=== PATIENT | female | born 1965 | race Caucasian/White ===

== ENCOUNTER → 2017-08-08 | Outpatient (CLI) | payer OTHER ==
[2017-08-08 09:29] LABS: AUTOMATED NEUTROPHIL # 3.5 TH/MM3 (1.8-7.7); BASOPHIL % 0.6 % (0.0-2.0); EOSINOPHIL # 0.2 TH/MM3 (0-0.4); EOSINOPHIL % 3.2 % (0.0-4.0); HEMATOCRIT 33.4 % (35.0-46.0); HEMO FLAGS DIFF FINAL; LYMPH % 22.5 % (9.0-44.0); LYMPHOCYTE # 1.2 TH/MM3 (1.0-4.8); MEAN CELL VOLUME 90.1 FL (80.0-100.0); MEAN CORPUSCULAR HEMOGLOBIN 31.1 PG (27.0-34.0); MEAN CORPUSCULAR HGB CONC 34.5 % (32.0-36.0); MONO % 10.2 % (0.0-8.0); NEUT % 63.5 % (16.0-70.0); PLATELET COUNT 225 TH/MM3 (150-450); RED BLOOD COUNT 3.71 MIL/MM3 (4.00-5.30); RED CELL DISTRIBUTION WIDTH 13.6 % (11.6-17.2); WHITE BLOOD COUNT 5.5 TH/MM3 (4.0-11.0)
[2017-08-08 09:52] LABS: ANION GAP 6 MEQ/L (5-15); AST (GOT) 16 U/L (15-37); BICARBONATE 26.4 MEQ/L (21.0-32.0); BLOOD UREA NITROGEN 12 MG/DL (7-18); CHLORIDE 106 MEQ/L (98-107); GLOMERULAR FILTRATION RATE 92 ML/MIN (>89); GLUCOSE,FASTING 95 MG/DL (74-99); POTASSIUM 4.4 MEQ/L (3.5-5.1); SODIUM (NA) 138 MEQ/L (136-145)
[2017-08-08 09:53] LABS: ALT (GPT) 17 U/L (10-53)
[2017-08-08 10:03] LABS: ALKALINE PHOSPHATASE 52 U/L (45-117); TOTAL BILIRUBIN ADULT 1.8 MG/DL (0.2-1.0)
== END ==
LOC: PLAB 06:40
PROVIDERS: ATTEND Family Medicine
DX: Z00.00 Encounter for general adult medical examination without abnormal findings (principal)
CPT/HCPCS: 36415; 80053; 82306; 84443; 85025

== ENCOUNTER 2018-03-11 16:10 | Observation (INO) ==
--- NOTE | 2018-03-11 17:19 | XR ---
EXAM DATE: 03/11/2018 5:16 PM EDT AGE/SEX: 52 years / Female INDICATIONS: Chest pain. CLINICAL DATA: This is the patient's initial encounter. Patient reports that signs and symptoms have been present for 1 day and indicates a pain score of 8/10. MEDICAL/SURGICAL HISTORY: None. None. COMPARISON: No prior exams available for comparison. FINDINGS: A single AP view of the chest demonstrates the lungs to be symmetrically aerated without evidence of mass, infiltrate or effusion. The cardiomediastinal contours are unremarkable. Osseous structures a re intact. CONCLUSION: No acute cardiopulmonary process. Electronically signed by: Felix Matthews MD 03/11/2018 5:18 PM EDT
[2018-03-11 17:46] LABS: Baso % (Auto) 0.4 % (0.0-2.0); Eos # (Auto) 0.2 th/mm3 (0.0-0.4); Eos % (Auto) 2.4 % (0.0-4.0); Hematocrit 36.5 % (35.0-46.0); Hemoglobin 12.7 gm/dL (11.6-15.3); Lymph # (Auto) 1.6 th/mm3 (1.0-4.8); Lymph % (Auto) 20.6 % (9.0-44.0); Mean Corpuscular HGB Conc 34.9 % (32.0-36.0); Mean Corpuscular Hemoglobin 31.6 pg (27.0-34.0); Mean Corpuscular Volume 90.4 fL (80.0-100.0); Mean Platelet Volume 7.9 fL (7.0-11.0); Mono # (Auto) 0.6 th/mm3 (0.0-0.9); Mono % (Auto) 7.3 % (0.0-8.0); Neut # (Auto) 5.5 th/mm3 (1.8-7.7); Neut % (Auto) 69.3 % (16.0-70.0); Platelet Count 268 th/mm3 (150-450); Red Blood Count 4.04 mil/mm3 (4.00-5.30); Red Cell Distribution Width 13.4 % (11.6-17.2)
[2018-03-11 17:56] LABS: Activated Partial Thrombo Time 32.6 sec (24.3-30.1); INR 1.1 Ratio; Prothrombin Time 10.8 sec (9.8-11.6)
--- NOTE | 2018-03-11 18:52 | ED ---
HPI General Chief Complaint: Chest Pain Stated Complaint: chest pain Time Seen by Provider: 03/11/18 16:36 Source: patient Mode of arrival: ambulatory Limitations: no limitations History of Present Illness HPI narrative: 52-year-old female that presents to the ED for evaluation of chest pressure and nausea for the past less than 2 hours. 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 Per patient is not really painful feels like a pressure. Does not really get worse with deep breaths. Has not noticed anything that makes it better or worse. She took 2 baby aspirins but states that she was followed by Dr. Kidd secondary to some palpitations 5 years ago. They found no signs of acute disease. She apparently was recently diagnosed with high blood pressure and was started on HCTZ she apparently has been taking this for last week and she developed some symptoms that she attributed to possible allergic reaction. Her doctor stop this medication and start her amlodipine. She still been feeling somewhat "weird" secondary to what she attributes this to medication. So she has not started amlodipine. She does take fish oil. She denies any other medical issues. No urinary or bowel movement issues. States that she felt nauseous but did not vomit. No numbness, tingling, weakness. No radiation of the pain Complete Quality Measures for STEMI Alert Patients Related Data Home Medications Medication Instructions Recorded Confirmed amlodipine 5 mg PO DAILY 03/11/18 03/11/18 magnesium 450 mg PO DAILY 03/11/18 03/11/18 omega 2-cff-giq-fish oil [Fish Oil] 1,200 mg PO DAILY 03/11/18 03/11/18 Allergies Allergy/AdvReac Type Severity Reaction Status Date / Time hydrochlorothiazide AdvReac Fatigue Verified 03/11/18 18:45 Review of Systems ROS Unobtainable All other systems reviewed negative except as stated in HPI [facility] Medical History Medical History Hypertension (Acute) Surgical History Surgical History Hx of section (Acute) Social History Social History Substance History: No History of Abuse Second Hand Smoke Exposure: No Smoking Status: Never smoker How Often Do You Have a Drink Containing Alcohol: 2 to 4 times a month Recent Travel in [facility] within the Last 8 Weeks: No Recent Out of Country Travel within the Last 8 Weeks: No Immunization History Tetanus Immunization: <5 Years Hx Influenza Vaccine This Season: Yes Exam Narrative Exam Narrative: GENERAL: Well appearing SKIN: Focused skin assessment warm/dry. HEAD: Atraumatic. Normocephalic. EYES: Pupils equal and round 4 mms reactive to light and accommodation. No scleral icterus. No injection or drainage. ENT: No nasal bleeding or discharge. Mucous membranes pink and moist. NECK: Trachea midline. No JVD. CARDIOVASCULAR: Regular rate and rhythm. No murmur appreciated. RESPIRATORY: No accessory muscle use. Clear to auscultation. Breath sounds equal bilaterally. GASTROINTESTINAL: Abdomen soft, non-tender, nondistended. Hepatic and splenic margins not palpable. MUSCULOSKELETAL: No obvious deformities. No clubbing. No cyanosis. No edema. Full range of motion of the upper and lower extremities bilaterally. 2+ pulses bilaterally. NEUROLOGICAL: Awake and alert. No obvious cranial nerve deficits. Motor grossly within normal limits. Normal speech. PSYCHIATRIC: Appropriate mood and affect; insight and judgment normal. Course Initial Documented Vital Signs Temperature 97.8 F 03/11/18 16:19 Pulse Rate 79 03/11/18 16:19 Respiratory Rate 16 03/11/18 16:19 Blood Pressure 163/93 H 03/11/18 16:19 Pulse Oximetry 99 03/11/18 16:19 Last Documented Vital Signs Temperature 98.5 F 03/12/18 04:00 Pulse Rate 66 03/12/18 06:40 Respiratory Rate 16 03/12/18 04:00 Blood Pressure 133/68 03/12/18 04:00 Pulse Oximetry 96 03/12/18 04:00 Medical Decision Making FERMÍN Attestation FERMÍN supervised visit: Yes Attestation: I, Dr. Toscano, have reviewed the advance practice practitioner's documentation and am in agreement, met with the patient face to face, made the diagnosis, and the medical decision making was done by me. *My assessment and Findings: Patient seen with SKINNY Chiang, please see PA note for further details. EKG did not show any signs of acute processes. Patient is having chest pains which are constant, does not know of any exacerbating or relieving factors. Cardiac workup initiated and if negative, planning to admit to chest pain center for further evaluation. MDM Narrative Medical decision making narrative: 52-year-old female that presents to the ED for evaluation of chest pain. Patient was properly examined and was found to have signs and symptoms consistent appears to be chest pain. Unclear etiology at this time with deafly concerning for ACS. Labs and imaging order. Initial EKG did not show any sign of ischemia read by me and attending. Labs and imaging showed no signs of acute disease. Unfortunately patient still has symptoms and has risk factors for ACS. Cannot rule out ACS at this time and per my attending recommendations she should be admitted to the chest pain center. I discussed this with family and patient who are in agreement with plan. Differential Diagnosis Differential Diagnosis: ACS versus a typical chest pain versus n STEMI versus chest pressure Medical Records Medical records reviewed: Yes I reviewed the patient's medical records. Lab Data Lab results reviewed: Yes I reviewed the patient's lab results. Lab results narrative: Troponin and CK-MB negative. Result diagrams: 03/11/18 17:15 03/11/18 18:25 Lab Results 03/11/18 03/11/18 03/11/18 Range/Units 17:15 17:15 17:15 WBC 8.0 (4.0-11.0) th/mm3 RBC 4.04 (4.00-5.30) mil/mm3 Hgb 12.7 (11.6-15.3) gm/dL Hct 36.5 (35.0-46.0) % MCV 90.4 (80.0-100.0) fL MCH 31.6 (27.0-34.0) pg MCHC 34.9 (32.0-36.0) % RDW 13.4 (11.6-17.2) % Plt Count 268 (150-450) th/mm3 MPV 7.9 (7.0-11.0) fL Neut % (Auto) 69.3 (16.0-70.0) % Lymph % (Auto) 20.6 (9.0-44.0) % [place] % (Auto) 7.3 (0.0-8.0) % Eos % (Auto) 2.4 (0.0-4.0) % Baso % (Auto) 0.4 (0.0-2.0) % Neut # (Auto) 5.5 (1.8-7.7) th/mm3 Lymph # (Auto) 1.6 (1.0-4.8) th/mm3 [place] # (Auto) 0.6 (0.0-0.9) th/mm3 Eos # (Auto) 0.2 (0.0-0.4) th/mm3 Baso # (Auto) 0.0 (0.0-0.2) th/mm3 WBC Differential . Differential Comment Auto diff final PT 10.8 (9.8-11.6) sec INR 1.1 Ratio APTT 32.6 H (24.3-30.1) sec Sodium (136-145) meq/L Potassium (3.5-5.1) meq/L Chloride (98-107) meq/L Carbon Dioxide (21.0-32.0) meq/L Anion Gap (5-15) meq/L BUN (7-18) mg/dL Creatinine (0.50-1.00) mg/dL Estimated GFR (>89) mL/min Random Glucose (74-106) mg/dL Calcium (8.5-10.1) mg/dL Magnesium (1.5-2.5) mg/dL Total Bilirubin (0.2-1.0) mg/dL AST (15-37) U/L ALT (10-53) U/L Alkaline Phosphatase (45-117) U/L Total Creatine Kinase Troponin I Total Protein (6.4-8.2) g/dL Albumin (3.4-5.0) g/dL Lipase Cancelled 03/11/18 03/11/18 03/11/18 Range/Units 17:15 18:25 21:30 WBC (4.0-11.0) th/mm3 RBC (4.00-5.30) mil/mm3 Hgb (11.6-15.3) gm/dL Hct (35.0-46.0) % MCV (80.0-100.0) fL MCH (27.0-34.0) pg MCHC (32.0-36.0) % RDW (11.6-17.2) % Plt Count (150-450) th/mm3 MPV (7.0-11.0) fL Neut % (Auto) (16.0-70.0) % Lymph % (Auto) (9.0-44.0) % [place] % (Auto) (0.0-8.0) % Eos % (Auto) (0.0-4.0) % Baso % (Auto) (0.0-2.0) % Neut # (Auto) (1.8-7.7) th/mm3 Lymph # (Auto) (1.0-4.8) th/mm3 [place] # (Auto) (0.0-0.9) th/mm3 Eos # (Auto) (0.0-0.4) th/mm3 Baso # (Auto) (0.0-0.2) th/mm3 WBC Differential Differential Comment PT (9.8-11.6) sec INR Ratio APTT (24.3-30.1) sec Sodium 141 (136-145) meq/L Potassium 3.7 (3.5-5.1) meq/L Chloride 106 (98-107) meq/L Carbon Dioxide 24.3 (21.0-32.0) meq/L Anion Gap 11 (5-15) meq/L BUN 11 (7-18) mg/dL Creatinine 0.69 (0.50-1.00) mg/dL Estimated GFR Greater than 89 (>89) mL/min Random Glucose 81 (74-106) mg/dL Calcium 9.2 (8.5-10.1) mg/dL Magnesium 2.2 (1.5-2.5) mg/dL Total Bilirubin 1.2 H (0.2-1.0) mg/dL AST 12 L (15-37) U/L ALT 17 (10-53) U/L Alkaline Phosphatase 59 (45-117) U/L Total Creatine Kinase Cancelled 84 82 Troponin I Cancelled Less than 0.02 L Less than 0.02 L Total Protein 7.6 (6.4-8.2) g/dL Albumin 3.9 (3.4-5.0) g/dL Lipase 127 03/12/18 Range/Units 00:30 WBC (4.0-11.0) th/mm3 RBC (4.00-5.30) mil/mm3 Hgb (11.6-15.3) gm/dL Hct (35.0-46.0) % MCV (80.0-100.0) fL MCH (27.0-34.0) pg MCHC (32.0-36.0) % RDW (11.6-17.2) % Plt Count (150-450) th/mm3 MPV (7.0-11.0) fL Neut % (Auto) (16.0-70.0) % Lymph % (Auto) (9.0-44.0) % [place] % (Auto) (0.0-8.0) % Eos % (Auto) (0.0-4.0) % Baso % (Auto) (0.0-2.0) % Neut # (Auto) (1.8-7.7) th/mm3 Lymph # (Auto) (1.0-4.8) th/mm3 [place] # (Auto) (0.0-0.9) th/mm3 Eos # (Auto) (0.0-0.4) th/mm3 Baso # (Auto) (0.0-0.2) th/mm3 WBC Differential Differential Comment PT (9.8-11.6) sec INR Ratio APTT (24.3-30.1) sec Sodium (136-145) meq/L Potassium (3.5-5.1) meq/L Chloride (98-107) meq/L Carbon Dioxide (21.0-32.0) meq/L Anion Gap (5-15) meq/L BUN (7-18) mg/dL Creatinine (0.50-1.00) mg/dL Estimated GFR (>89) mL/min Random Glucose (74-106) mg/dL Calcium (8.5-10.1) mg/dL Magnesium (1.5-2.5) mg/dL Total Bilirubin (0.2-1.0) mg/dL AST (15-37) U/L ALT (10-53) U/L Alkaline Phosphatase (45-117) U/L Total Creatine Kinase Troponin I Less than 0.02 L Total Protein (6.4-8.2) g/dL Albumin (3.4-5.0) g/dL Lipase Imaging Data Attestation: I personally reviewed and interpreted this imaging study as follows : Radiologist's impression: ITS Impressions Chest X-Ray 03/11/18 16:54 CONCLUSION: No acute cardiopulmonary process. ECG Data EKG Prior to Arrival: No Attestation: I personally reviewed and interpreted this ECG as follows: (EKG shows sinus rhythm with no sign of acute ST elevation or arrhythmia but by me and attending.) Discharge Plan Discharge Disposition Patient Disposition: 30 Still Patient Discharge Details Diagnosis: Chest pain Physicians Team ED Provider: José Toscano ED Midlevel Provider: Lizandro Dash Primary Care Provider: Leonila Ray Attending Provider: Stan Esquivel ED Status: Left Department Discharge Information Discharge Date/Time: 03/11/18 21:00
[2018-03-11] MEDS ORDERED: Morphine Sulfate Inj 2 MG/ML Vial IV.PUSH ONE (18:54)
[2018-03-11 19:07] LABS: Albumin 3.9 g/dL (3.4-5.0); Anion Gap 11 meq/L (5-15); Aspartate Aminotransferase 12 U/L (15-37); Blood Urea Nitrogen 11 mg/dL (7-18); Calcium 9.2 mg/dL (8.5-10.1); Carbon Dioxide 24.3 meq/L (21.0-32.0); Chloride 106 meq/L (98-107); Glomerular Filtration Rate Greater Than 89 mL/min (>89); Glucose,Random 81 mg/dL (74-106); Lipase 127 U/L (73-393); Magnesium 2.2 mg/dL (1.5-2.5); Potassium 3.7 meq/L (3.5-5.1); Sodium 141 meq/L (136-145)
[2018-03-11 19:13] LABS: Alanine Aminotransferase 17 U/L (10-53); Alkaline Phosphatase 59 U/L (45-117); Total Protein 7.6 g/dL (6.4-8.2)
[2018-03-11] MEDS ORDERED: Morphine Inj 4 MG/ML Vial IV.PUSH ONE (19:15)
[2018-03-11 19:22] LABS: Creatine Kinase 84 U/L (26-192)
[2018-03-11] MEDS ORDERED: Acetaminophen 500 MG Tablet PO PRN (19:52)
--- NOTE | 2018-03-11 21:18 | ECG ---
Date Performed: 03/11/2018 Time Performed: 17:08:37 PTAGE: 52 years EKG: Sinus rhythm NORMAL ECG NO PREVIOUS TRACING DOCTOR: Eugene Winkler Interpretating Date/Time 03/11/2018 21:17:21
[2018-03-11 22:47] LABS: Creatine Kinase 82 U/L (26-192)
--- NOTE | 2018-03-12 08:48 | ECG ---
Date Performed: 03/12/2018 Time Performed: 00:15:44 PTAGE: 52 years EKG: Sinus rhythm LOW QRS VOLTAGE IN PRECORDIAL LEADS BORDERLINE ECG NO PREVIOUS TRACING DOCTOR: Stan Esquivel Interpretating Date/Time 03/12/2018 08:46:29
--- NOTE | 2018-03-12 08:48 | ECG ---
Date Performed: 03/11/2018 Time Performed: 22:05:20 PTAGE: 52 years EKG: Sinus rhythm NORMAL ECG PREVIOUS TRACING : 03/11/2018 17.08 Since previous tracing, no significant change noted DOCTOR: Stan Esquivel Interpretating Date/Time 03/12/2018 08:46:47
--- NOTE | 2018-03-12 10:40 | P.HPCA ---
History of Present Illness Primary Care Physician: Leonila Ray MD Chief Complaint: Chest pain History of Present Illness: This is a 52-year-old female recently diagnosed hypertension and was originally started on hydrochlorothiazide presents to ED feeling of chest discomfort, dizziness, and nausea that began yesterday while she is at work. She was prescribed HCTZ 25 mg daily for 3 days she took it only one half tablet daily. And she took a full strength and began feeling nauseous and dizzy and later. She spoke with her PCP and was told to stop taking that and started on amlodipine 5 mg daily. She has not started taking the medication yet. Yesterday at work she developed chest pressure and left side of her chest with dizziness and nausea. Last about 2 hours. She was not short of breath did not notice diaphoresis. States she was given morphine in the ED which did seem to help. She states sublingual nitroglycerin really did not make a difference. Currently is asymptomatic. Patient is a non-smoker. She is not sure of her family medical history, states she was adopted. - Diagnosis (1) Chest pain (2) Hypertension Inpatient Certification: I certify that the inpatient services were ordered in accordance with Medicare regulations governing the order. This includes certification that hospital inpatient services are reasonable and necessary and in the case of services not specified as inpatient-only under 42 CFR 419.22(n), that they are appropriately provided as inpatient services in accordance to with the 2-midnight benchmark under 43 CFR 412.3(e) Review of Systems General: Patient denies fevers, chills, and recent travel. HEENT: Patient denies headache, sore throat, difficulty swallowing. Cardiovascular: Has the chest discomfort as mentioned above. Denies sensation of heart beating rapidly or irregularly. No syncope. Denies diaphoresis. Respiratory: Denies shortness of breath or inspirational chest discomfort. Denies coughing wheezing or hemoptysis. GI: She was nauseous. Patient denies vomiting, diarrhea, abdominal pain, bloody stools. Musculoskeletal: Patient denies joint pain or edema. Denies calf pain or edema. Neurovascular: Patient felt dizzy. Patient denies numbness, tingling, weakness in extremities. Denies headache. Endocrine: Denies polyuria and polydipsia. Hematologic: Denies easy bruising. Skin: Denies rash or itching. PMFSH - History History Provided By: Patient - Medical History Medical History: Medical History (Last Updated 03/11/18 @ 21:53 by Chanelle Zayas RN) Hypertension - Surgical History Surgical History: Surgical History (Last Updated 03/11/18 @ 23:13 by Chanelle Zayas RN) Hx of section - Tobacco History Second Hand Smoke Exposure: No Smoking Status: Never smoker - Alcohol History How Often Do You Have a Drink Containing Alcohol: 2 to 4 times a month - Substance Use History Substance History: No History of Abuse - Travel History Recent Travel in the [place] Within the Last 8 Weeks: No Recent Travel Out of the Country Within the Last 8 Weeks: No - Immunization History Tetanus Immunization: <5 Years Hx Influenza Vaccine This Season: Yes Medications and Allergies Active Medications: Active Medications Acetaminophen (Tylenol) 500 mg PO Q4H PRN PRN Reason: HEADACHE Hydrocodone Bitart/Acetaminophen ([place] 7.5/325) 1 tab PO Q4H PRN PRN Reason: PAIN SCALE 1 TO 7 Sodium Chloride (Ns Flush) 2 ml IV.FLUSH UNSCH PRN PRN Reason: FLUSH AFTER USING IV ACCESS Sodium Chloride (Ns Flush) 2 ml IV.FLUSH BID EVARISTO Last Admin: 03/11/18 22:06 Dose: 2 ml Sodium Chloride (Ns Flush) 2 ml IV.FLUSH PRN PRN PRN Reason: FLUSH AFTER USING IV ACCESS Allergies Allergy/AdvReac Type Severity Reaction Status Date / Time hydrochlorothiazide AdvReac Fatigue Verified 03/11/18 18:45 Home Medications Medication Instructions Recorded Confirmed Type amlodipine 5 mg PO DAILY 03/11/18 03/11/18 History magnesium 450 mg PO DAILY 03/11/18 03/11/18 History omega 0-khm-nsg-fish oil [Fish Oil] 1,200 mg PO DAILY 03/11/18 03/11/18 History Exam Vital signs: Vital Signs 03/11/18 16:19 03/11/18 16:54 03/11/18 17:25 Temperature 97.8 F Pulse Rate 79 76 70 Respiratory Rate 16 18 16 Blood Pressure 163/93 H 156/88 H 136/80 Pulse Oximetry 99 98 98 03/11/18 17:38 03/11/18 17:56 03/11/18 19:29 Temperature Pulse Rate Respiratory Rate 18 Blood Pressure 130/76 Pulse Oximetry 98 98 99 03/11/18 19:30 03/11/18 20:00 03/12/18 00:00 Temperature 98.1 F 98.5 F Pulse Rate 77 70 70 Respiratory Rate 20 16 16 Blood Pressure 137/80 160/88 H 125/72 Pulse Oximetry 99 98 98 03/12/18 04:00 03/12/18 06:40 Temperature 98.5 F Pulse Rate 80 66 Respiratory Rate 16 Blood Pressure 133/68 Pulse Oximetry 96 Intake & Output 03/11/18 03/12/18 03/12/18 18:59 06:59 18:59 Weight 85.275 kg Narrative: GENERAL: This is a well-nourished, well-developed patient, in no apparent distress. Patient speaks in clear complete sentences. Patient is pleasant. HEENT: Head is atraumatic and normocephalic. Neck is supple without lymphadenopathy and trachea is midline. No JVD or carotid bruits. CARDIOVASCULAR: Regular rate and rhythm without murmurs, gallops, or rubs. RESPIRATORY: Clear to auscultation. Breath sounds equal bilaterally. No wheezes , rales, or rhonchi. Chest wall is nontender. No use of accessory muscles. GASTROINTESTINAL: Abdomen is nontender, nondistended. Abdomen soft. No obvious pulsatile mass or bruit. No CVA tenderness. Strong femoral pulses bilaterally. Normal bowel sounds in all quadrants. MUSCULOSKELETAL: Patient is moving upper and lower extremities freely. No calf tenderness or edema, no Homans sign. Strong pulses in upper and lower extremities. NEUROLOGICAL: Patient is alert and oriented. Cranial nerves 2-12 are grossly intact. No focal deficits and speech is clear. SKIN: No rash and turgor is normal. Results 03/11/18 17:15 03/11/18 18:25 Cardiac Enzymes 03/11/18 03/11/18 03/11/18 Range/Units 17:15 18:25 21:30 AST 12 L (15-37) U/L Troponin I Cancelled Less than 0.02 L Less than 0.02 L 03/12/18 Range/Units 00:30 AST (15-37) U/L Troponin I Less than 0.02 L Coagulation 03/11/18 Range/Units 17:15 PT 10.8 (9.8-11.6) sec APTT 32.6 H (24.3-30.1) sec CBC 03/11/18 Range/Units 17:15 WBC 8.0 (4.0-11.0) th/mm3 RBC 4.04 (4.00-5.30) mil/mm3 Hgb 12.7 (11.6-15.3) gm/dL Hct 36.5 (35.0-46.0) % Plt Count 268 (150-450) th/mm3 Neut # (Auto) 5.5 (1.8-7.7) th/mm3 Lymph # (Auto) 1.6 (1.0-4.8) th/mm3 [place] # (Auto) 0.6 (0.0-0.9) th/mm3 Eos # (Auto) 0.2 (0.0-0.4) th/mm3 Baso # (Auto) 0.0 (0.0-0.2) th/mm3 Comprehensive Metabolic Panel 03/11/18 Range/Units 18:25 Sodium 141 (136-145) meq/L Potassium 3.7 (3.5-5.1) meq/L Chloride 106 (98-107) meq/L Carbon Dioxide 24.3 (21.0-32.0) meq/L BUN 11 (7-18) mg/dL Creatinine 0.69 (0.50-1.00) mg/dL Calcium 9.2 (8.5-10.1) mg/dL AST 12 L (15-37) U/L ALT 17 (10-53) U/L Alkaline Phosphatase 59 (45-117) U/L Total Protein 7.6 (6.4-8.2) g/dL Albumin 3.9 (3.4-5.0) g/dL Intake and Output 03/11/18 03/12/18 03/12/18 22:59 06:59 14:59 Other: Weight 85.275 kg EKG interpretations - EKG EKG shows: sinus rhythm (EKGs are sinus rhythm without significant ST segment depressions or elevations.) Caprini VTE Risk Assessment Caprini VTE Risk Assessment: No/Low Risk (score <= 1) Caprini Risk Assessment Model: Point Value = 1 Point Value = 2 Point Value = 3 Point Value = 5 Age 41-60 Minor surgery BMI > 25 kg/m2 Swollen legs Varicose veins or History of unexplained or recurrent spontaneous Oral contraceptives or hormone replacement Sepsis (< 1 month) Serious lung disease, including pneumonia (< 1 month) Abnormal pulmonary function Acute myocardial infarction Congestive heart failure (< 1 month) History of inflammatory bowel disease Medical patient at bed rest Age 61-74 Arthroscopic surgery Major open surgery (> 45 min) Laparoscopic surgery (> 45 min) Malignancy Confined to bed (> 72 hours) Immobilizing plaster cast Central venous access Age >= 75 History of VTE Family history of VTE Factor V Leiden Prothrombin [id number] Lupus anticoagulant Anticardiolipin antibodies Elevated serum homocysteine Heparin-induced thrombocytopenia Other congenital or acquired thrombophilia Stroke (< 1 month) Elective arthroplasty Hip, pelvis, or leg fracture Acute spinal cord injury (< 1 month) Prophylaxis Regimen: Total Risk Factor Score Risk Level Prophylaxis Regimen 0-1 Low Early ambulation 2 Moderate Order ONE of the following: *Sequential Compression Device (SCD) *Heparin 5000 units SQ BID 3-4 Higher Order ONE of the following medications: *Heparin 5000 units SQ TID *Enoxaparin/Lovenox 40 mg SQ daily (WT < 150 kg, CrCl > 30 mL/min) *Enoxaparin/Lovenox 30 mg SQ daily (WT < 150 kg, CrCl > 10-29 mL/min) *Enoxaparin/Lovenox 30 mg SQ BID (WT < 150 kg, CrCl > 30 mL/min) AND/OR *Sequential Compression Device (SCD) 5 or more Highest Order ONE of the following medications: *Heparin 5000 units SQ TID (Preferred with Epidurals) *Enoxaparin/Lovenox 40 mg SQ daily (WT < 150 kg, CrCl > 30 mL/min) *Enoxaparin/Lovenox 30 mg SQ daily (WT < 150 kg, CrCl > 10-29 mL/min) *Enoxaparin/Lovenox 30 mg SQ BID (WT < 150 kg, CrCl > 30 mL/min) AND *Sequential Compression Device (SCD) Assessment and Plan - Assessment (1) Chest pain Code(s): R07.9 - Chest pain, unspecified Status: Acute (2) Hypertension Code(s): I10 - Essential (primary) hypertension Status: Acute - Plan * Chest pain: Patient has had serial cardiac enzymes and he for ruling out purposes. She was seen by Dr. Stan Esquivel of cardiology in the chest pain center. She will undergo a Gabriel protocol ETT. She will be discharged home if her stress test is nonischemic with instructions to follow-up with PCP. Return to ED for interval issues. * Hypertension: Patient was switched from HCTZ to amlodipine 5 mg daily by her PCP. Patient will be instructed to take one half of that tablet daily. Keep a journal of vital signs and follow-up with PCP. Patient stable at this time. She is agreeable to this plan. H&P: Quality - VTE Deep Vein Thrombosis/Pulmonary Embolism Present on Admission: No (1) Chest pain Qualifiers: Chest pain type: unspecified Qualified Code(s): R07.9 - Chest pain, unspecified
--- NOTE | 2018-03-13 13:14 | TR ---
Date Performed: 03/12/2018 Time Performed: 10:52:41 DOCTOR: Stan Esquivel DRUG LIST: CLINICAL HISTORY: REASON FOR TEST: REASON FOR ENDING: OBSERVATION: CONCLUSION: ANTON PROTOCOL ETT. NO CP. TEST STOPPED AFTER EXCEEDING GOAL HR SECONDARY TO SOBAND LEG FATIGUE.Maximum RZ=141 % Max HR Achieved=95.0% Total Exercise Time=9:00 COMMENTS: Patient exercised using the Anton protocol. No electrocardiographic changes were seen to suggest ischemia. Hemodynamic response to exercise was normal. No significant arrhythmia was prese nt.
== END 2018-03-12 12:23 | disposition home or self-care (01) ==
LOC: NEDA 16:10 → NEPE 16:10 → NEPHCDU 16:10
PROVIDERS: ADMIT Internal Medicine Cardiovascular Disease; ATTEND Internal Medicine Cardiovascular Disease
DX: I10 Essential (primary) hypertension; R00.2 Palpitations; R11.0 Nausea; R07.9 Chest pain, unspecified; R42 Dizziness and giddiness